=== PATIENT | female | born 1970 | race Hispanic/Latino ===

== ENCOUNTER 2023-10-16 21:19 | Emergency (ER) | payer SELFPAY | END 2023-10-16 22:34 | disposition home or self-care (01) | LOC: MADERS 21:19 | DX: S91.332A Puncture wound without foreign body, left foot, initial encounter (principal); I10 Essential (primary) hypertension; E11.9 Type 2 diabetes mellitus without complications; C53.9 Malignant neoplasm of cervix uteri, unspecified; Z75.8 Other problems related to medical facilities and other health care; Z79.84 Long term (current) use of oral hypoglycemic drugs; Z79.4 Long term (current) use of insulin; W45.0XXA Nail entering through skin, initial encounter ==